=== PATIENT | male | born 1995 | race Caucasian/White ===

== ENCOUNTER → 2020-12-12 | Outpatient (CLI) | payer SELFPAY ==
[~2020-12-12] MED LIST: CEPH500 PO; MECL12.5 PO; Vibramycin100 MG PO; Zofran Odt4 MG SL
[2020-12-14 03:08] LABS: CHLAMYDIA TRACHOMATIS, NAA Negative (Negative)
== END ==
LOC: LAB 11:13 → LAB SHORT 11:13
PROVIDERS: Physician Assistant
DX: N34.1 Nonspecific urethritis (principal); R30.0 Dysuria
CPT/HCPCS: 87086; 87491; 87591

== ENCOUNTER 2022-10-04 06:52 | Emergency (ER) | payer SELFPAY ==
[~2022-10-04] VITALS: Ht 170.2 cm; Wt 84.8 kg
== END 2022-10-04 08:10 | disposition home or self-care (01) ==
LOC: ER 06:52
DX: M54.50 Low back pain, unspecified (principal); F17.220 Nicotine dependence, chewing tobacco, uncomplicated
CPT/HCPCS: 99283